=== PATIENT | female | born 1980 | race Caucasian/White ===

== ENCOUNTER → 2017-09-02 | Outpatient (CLI) | payer OTHER | END | disposition home or self-care (01) | LOC: ECHO 09:20 | DX: I27.20 Pulmonary hypertension, unspecified (principal); I07.1 Rheumatic tricuspid insufficiency | CPT/HCPCS: 93306 ==

== ENCOUNTER → 2021-01-14 | Outpatient (CLI) | payer MEDICAID ==
[~2021-01-14] MED LIST: SERT25TA PO
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
== END ==
LOC: KCIC MRI 13:01
PROVIDERS: ATTEND Family Medicine
DX: M47.817 Spondylosis without myelopathy or radiculopathy, lumbosacral region (principal); M48.07 Spinal stenosis, lumbosacral region; M51.27 Other intervertebral disc displacement, lumbosacral region
CPT/HCPCS: 72148

== ENCOUNTER → 2021-03-13 | Outpatient (CLI) | payer MEDICAID ==
--- NOTE | 2021-03-13 14:25 | KCIC ---
EXAMINATION: Magnetic resonance angiography (MRA) of the brain without contrast 03/13/2021 9:35 AM HISTORY: New pressure in the back of the head without relief. TECHNIQUE: Noncontrast 5 magnetic resonance angiography of the [place] was obtained. Maximum intensity projection images are provided. Family history of aneurysm. COMPARISON: 05/04/2017 FINDINGS: Intracranial segments of internal carotid arteries are normal in course and caliber. Ophthalmic segme nts are widely patent. A1 segments of anterior cerebral arteries are patent. There is a broad-based 2 mm x 2 mm aneurysm arising from the right P2 segment of anterior cerebral artery (series 7, image 12 3). Middle cerebral arteries are normal in course and caliber with patent sylvian branches. Vertebral arteries are codominant. Posterior inferior cerebellar arteries are widely patent. Anterior inferior cerebellar arteries are patent. Superior cerebellar arteries are patent. Posterior cerebral arteries are normal in course and caliber. There is no vascular malformation or high-grade stenosis/ large vessel occlusion involving [place]. Diffusion weighted images reveal no hyperintensities to suggest acute cerebral infarction. IMPRESSION: 1. There is a 2 x 2 mm laterally projecting aneurysm arising from the right A2 segment of anterior ce rebral artery immediately distal to the anterior communicating artery. 2. No vascular malformation or high-grade stenosis/large vessel occlusion. Electronically signed by: Kanchan Mondragon MD (03/13/2021 2:22 PM) [id number]
== END ==
LOC: KCIC MRI 09:03
PROVIDERS: ATTEND Physician Assistant
DX: I67.1 Cerebral aneurysm, nonruptured (principal); R51.9 Headache, unspecified; Z82.49 Family history of ischemic heart disease and other diseases of the circulatory system
CPT/HCPCS: 70544

== ENCOUNTER 2021-08-08 15:13 | Emergency (ER) | payer MEDICAID ==
[~2021-08-08] VITALS: Ht 182.9 cm; Wt 99.1 kg
[2021-08-08 15:38] VITALS: BP 140/96
[2021-08-08] MEDS ORDERED: KETOROLAC 30 MG/ML VIAL. IVP ONE (16:00)
[2021-08-08] MEDS ORDERED: PROCHLORPERAZINE 10 MG/2 ML VIAL. IV ONE (16:00)
[2021-08-08] MEDS ORDERED: IV NORMAL SALINE 1000ML BAG 1,000 ML IV ONE (16:00)
[2021-08-08] MEDS ORDERED: diphenhydrAMINE 50 MG/ML VIAL IVP ONE (16:00)
--- NOTE | 2021-08-08 16:11 | PHYS DOC ---
Past Medical History Past Surgical History: , Tubal ligation Additional Past Surgical Histo: umbilical hernia repair General Adult EDM: Chief Complaint: HEADACHE HPI: HPI: Patient is a 40-year-old female who presents to the emergency department for posterior head pain that started this morning. She rates her pain 9 out of 10. Pain does not radiate. She took naproxen and Tylenol for her symptoms. Patient does have a history of headaches. The last time she had a headache was in April of last year she saw her primary care provider and had a CT angio of her brain performed which did show a 2 x 2 millimeter aneurysm. Patient was referred to [facility] and she states she saw a neurologist who performed a repeat image and the aneurysm was not better. Patient states that they told her to continue to follow-up with her primary care provider. Associated with th e headache patient is reporting nausea and dizziness. She denies vomiting, photophobia, phonophobia, fevers, injuries. She reports that this headache feels different than the previous headache in which the aneurysm was found. She denies thunderclap headache. Review of Systems: Review of Systems: Constitutional: negative unless reported in HPI Eyes: negative unless reported in HPI HENT: negative unless reported in HPI Respiratory: negative unless reported in HPI Cardiovascular: negative unless reported in HPI GI: negative unless reported in HPI : negative unless reported in HPI Musculoskeletal: negative unless reported in HPI Integument: negative unless reported in HPI Neurologic: negative unless reported in HPI Endocrine: negative unless reported in HPI Lymphatic: negative unless reported in HPI Psychiatric: negative unless reported in HPI Heart Score: C/O Chest Pain: N/A Risk Factors: Risk Factors: DM, Current or recent (<one month) smoker, HTN, HLP, family history of CAD, obesity. Risk Scores: Score 0 - 3: 2.5% MACE over next 6 weeks - Discharge Home Score 4 - 6: 20.3% MACE over next 6 weeks - Admit for Clinical Observation Score 7 - 10: 72.7% MACE over next 6 weeks - Early Invasive Strategies Current Medications: Current Medications Medications (Trade) Dose Ordered Sig/Prosper Start Time Stop Time Status Last Admin Dose Admin Diphenhydramine HCl (Benadryl) 25 mg 1X ONCE 08/08/21 16:00 08/08/21 16:01 DC 08/08/21 15:59 25 MG Ketorolac Tromethamine (Toradol 30mg Vial) 30 mg 1X ONCE 08/08/21 16:00 08/08/21 16:01 DC 08/08/21 15:57 30 MG Prochlorperazine Edisylate (Compazine) 10 mg 1X ONCE 08/08/21 16:00 08/08/21 16:01 DC 08/08/21 15:55 10 MG Sodium Chloride 1,000 ml @ 1,000 mls/hr 1X ONCE 08/08/21 16:00 08/08/21 16:59 Allergies: Allergies: Allergies Coded Allergies Type Severity Reaction Last Updated Verified Penicillins Allergy Intermediate 05/04/17 Yes morphine Allergy Intermediate 05/04/17 Yes Physical Exam: PE: Constitutional: Well developed, well nourished, no acute distress, non-toxic appearance. [] HENT: Normocephalic, atraumatic, bilateral external ears normal, oropharynx moist, no oral exudates, nose normal. [] Eyes: PERRL, 4 mm bilaterally, EOMI, conjunctiva normal, no discharge. [] Neck: Normal range of motion, no tenderness, no nucchal rigidity, supple, no stridor. [] Cardiovascular:Heart rate regular rhythm, no murmur [] Lungs & Thorax: Bilateral breath sounds clear to auscultation [] Abdomen: Bowel sounds normal, soft, no tenderness, no masses, no pulsatile masses. [] Skin: Warm, dry, no erythema, no rash. [] Back: Normal range of motion Extremities: No tenderness, no cyanosis, no clubbing, ROM intact, no edema. [] Neurologic: Alert and oriented X 3, equal claim auditor strengths, patient is moving all four extremities equally, no speech changes, normal sensation, no pronator drift, no limb ataxia Psychologic: Affect normal, judgement normal, mood normal. [] Current Patient Data: Labs: Laboratory Tests Test 08/08/21 16:03 White Blood Count 2.9 x10^3/uL Red Blood Count 3.51 x10^6/uL Hemoglobin 9.8 g/dL Hematocrit 30.6 % Mean Corpuscular Volume 87 fL Mean Corpuscular Hemoglobin 28 pg Mean Corpuscular Hemoglobin Concent 32 g/dL Red Cell Distribution Width 22.6 % Platelet Count 212 x10^3/uL Neutrophils (%) (Auto) 47 % Lymphocytes (%) (Auto) 41 % Monocytes (%) (Auto) 8 % Eosinophils (%) (Auto) 2 % Basophils (%) (Auto) 2 % Neutrophils # (Auto) 1.4 x10^3/uL Lymphocytes # (Auto) 1.2 x10^3/uL Monocytes # (Auto) 0.2 x10^3/uL Eosinophils # (Auto) 0.1 x10^3/uL Basophils # (Auto) 0.1 x10^3/uL Platelet Estimate Adequate Poikilocytosis Slight Basophilic Stippling Present Anisocytosis Mod Spherocytes Target Cells Few Tear Drop Cells Occ Ovalocytes Occ Stomatocytes Few Sodium Level 135 mmol/L Potassium Level 3.5 mmol/L Chloride Level 100 mmol/L Carbon Dioxide Level 25 mmol/L Anion Gap 10 Blood Urea Nitrogen 6 mg/dL Creatinine 0.8 mg/dL Estimated GFR (Cockcroft-Gault) 79.0 BUN/Creatinine Ratio 8 Glucose Level 86 mg/dL Calcium Level 8.0 mg/dL Total Bilirubin 0.5 mg/dL Aspartate Amino Transf (AST/SGOT) 69 U/L Alanine Aminotransferase (ALT/SGPT) 44 U/L Alkaline Phosphatase 65 U/L Total Protein 7.5 g/dL Albumin 3.9 g/dL Albumin/Globulin Ratio 1.1 Current Medications Medications (Trade) Dose Ordered Sig/Prosper Route PRN Reason Start Time Stop Time Status Last Admin Dose Admin Diphenhydramine HCl (Benadryl) 25 mg 1X ONCE IVP 08/08/21 16:00 08/08/21 16:01 DC 08/08/21 15:59 Ketorolac Tromethamine (Toradol 30mg Vial) 30 mg 1X ONCE IVP 08/08/21 16:00 08/08/21 16:01 DC 08/08/21 15:57 Sodium Chloride 1,000 ml @ 1,000 mls/hr 1X ONCE IV 08/08/21 16:00 08/08/21 16:59 DC Prochlorperazine Edisylate (Compazine) 10 mg 1X ONCE IV 08/08/21 16:00 08/08/21 16:01 DC 08/08/21 15:55 Iohexol (Omnipaque 350 Mg/ml) 75 ml 1X ONCE IV 08/08/21 17:00 08/08/21 17:07 DC 08/08/21 17:26 Info (CONTRAST GIVEN -- Rx MONITORING) 1 each PRN DAILY PRN MC SEE COMMENTS 08/08/21 17:15 08/10/21 17:14 Vital Signs: Vital Signs Date Time Temp Pulse Resp B/P (MAP) Pulse Ox O2 Delivery O2 Flow Rate FiO2 08/08/21 15:38 98.5 69 25 140/96 (111) 100 Room Air 98.5 EKG: EKG: [] Radiology/Procedures: Radiology/Procedures: []PROCEDURE: CT HEAD WO CONTRAST Exam: CT head INDICATION: Headache TECHNIQUE: Sequential axial images through the head were obtained without the administration of IV contrast. Exposure: One or more of the following in the visualized dose reduction tech niques were utilized for this examination: 1. Automated exposure control 2. Adjustment of the MA and/or KV according to patient size 3. Use of iterative of reconstructive technique Comparisons: None FINDINGS: No focal parenchymal lesion or hemorrhage is identified. There is no midline shift or sulcal effacement. No acute vascular territory infarction is identified. Minor-white distinction is preserved. The ventricular system is within normal limits without compression hydrocephalus. The basal cisterns are well maintained. The visualized portions of the paranasal sinuses and mastoid air cells are well- pneumatized. No acute fractures. IMPRESSION: No acute intracranial abnormality. Electronically signed by: Abhay Medellin MD (08/08/2021 4:22 PM) [facility] DICTATED and SIGNED BY: ABHAY MEDELLIN MD DATE: 08/08/21 [id number] 0 REASON: headache, hx aneurysm PROCEDURE: CT ANGIOGRAPHY HEAD CTA HEAD History:Reason: headache, hx aneurysm / Spl. Instructions: OMNI 350 INJ. 75 MLS / History: Technique: After bolus of intravenous contrast, volumetric CT data acquisition was acquired of the head. Multiplanar reconstruction images to include MIP and 3-D reconstruction images are submitted. Exposure: One or more of the following individualized dose reduction techniques were utilized for this examination: 1. Automated exposure control 2. Adjustment of the mA and/or kV according to patient size 3. Use of iterative reconstruction technique. Comparison: MR angiogram March 13, [address] August 08, 2019 Any determination of stenosis is based on NASCET criteria. Noncontrast CT head: No intracranial hemorrhage. No mass effect. No hydrocephalus. Extra-axial spaces are unremarkable. Imaged orbits are unremarkable. Imaged paranasal sinuses and mastoid air cells are clear. Head CTA: ICA: No stenosis, occlusion or aneurysm. MCA: No stenosis, occlusion or aneurysm. JOY: Unchanged tiny 2 mm right anterior cerebral artery A2 segment aneurysm (series 10 image 28). No stenosis or occlusion. REHABILITATION SERVICES COORDINATOR: No stenosis, occlusion or aneurysm. Basilar artery: No stenosis, occlusion or aneurysm. Distal vertebral arteries: No stenosis, occlusion or aneurysm. Impression: 1. No intracranial arterial stenosis or occlusion. 2. 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 Electronically signed by: Karl Davis DO (08/08/2021 5:59 PM) [facility] DICTATED and SIGNED BY: KARL DAVIS DO DATE: 08/08/21 [id number] 0 Course & Med Decision Making: Course & Med Decision Making Pertinent Labs and Imaging studies reviewed. (See chart for details) [] Patient presents to the emergency department for posterior head pain that started this morning. Patient does have a history of headaches and had brain imaging in April that showed a 2 x 2 millimeter aneurysm. Patient states she followed up with a neurologist at [facility] and that additional brain imaging was performed that did not show any aneurysm. Patient denies thunderclap headache, she is reporting nausea and dizziness with her headache, no neck stiffness. She had a normal neuro exam. Work-up in the ER consisted of CT imaging of patient's head which showed no acute findings.. Patient treated with migraine cocktail. Following treatment in the emergency department, patient reports complete resolution in her headache. Due to patient's history of an aneurysm, CT angio of her head was performed which did show an unchanged 2 mm aneurysm that was previously seen without any additional findings patient was noted to have mild leukopenia. Due to this and her symptoms of headache, she was tested for COVID-19 you will be notified of those results they become available.. Patient advised to take [id number] follow-up with [facility] if she continues to have the pain. I discussed with patient all findings and diagnostic testing as well as the need to follow-up with PCP for further evaluation and treatment or return to the ER if any new or worsening symptoms. Strict return precautions were also discussed at length. Patient voiced understanding and agreement with the plan. Patient is hemodynamically stable at the time of disposition. Dragon Disclaimer: Dragon Disclaimer: This electronic medical record was generated, in whole or in part, using a voice recognition dictation system. Departure Departure Impression: Primary Impression: Headache Qualified Codes: R51.9 - Headache, unspecified Disposition: HOME / SELF CARE / HOMELESS Condition: GOOD Referrals: CHUY BYRD MD (PCP) Patient Instructions: General Headache Without Cause Additional Instructions: You were seen in the emergency department today for a headache. You were treated with a migraine cocktail and reported improvement in symptoms. CT imaging of your head did show an unchanged aneurysm that is approximately 2 mm. Prior to discharge, you were tested for COVID-19. You will be notified of your results when they become available in approximately 1 to 2 days. Please self isolate until you receive these results. You can take Tylenol for any pain at home. Increase your fluids and rest. You will need to follow-up with [facility] regarding this finding. Please contact them tomorrow to set up a follow-up appointment. Return to the emergency department if you develop worsening of your head pain, intractable nausea or vomiting, high fevers refractory to treatment, confusion, difficulty walking, poor coordination, speech problems. TRAVON HIRSCH APRN Aug 08, 2021 16:11
--- NOTE | 2021-08-08 16:24 | RAD ---
Exam: CT head INDICATION: Headache TECHNIQUE: Sequential axial images through the head were obtained without the administration of IV co ntrast. Exposure: One or more of the following in the visualized dose reduction techniques were utilized for this examination: 1. Automated exposure control 2. Adjustment of the MA and/or KV according to patient size 3. Use of iterative of reconstructive technique Comparisons: None FINDINGS: No focal parenchymal lesion or hemorrhage is identified. There is no midline shift or sulcal effaceme nt. No acute vascular territory infarction is identified. Minor-white distinction is preserved. The ventricular system is within normal limits without compression hydrocephalus. The basal cisterns are well maintained. The visualized portions of the paranasal sinuses and mastoid air cells are well-pneumatized. No acute fractures. IMPRESSION: No acute intracranial abnormality. Electronically signed by: Abhay Cueto MD (08/08/2021 4:22 PM) JESSICA
[2021-08-08 16:47] LABS: BASO # 0.1 x10^3/uL (0.0-0.2); BASO % 2 % (0-3); EOS # 0.1 x10^3/uL (0.0-0.7); EOS % 2 % (0-3); HEMATOCRIT 30.6 % (36.0-47.0); HEMOGLOBIN 9.8 g/dL (12.0-15.5); LYMPH # 1.2 x10^3/uL (1.0-4.8); LYMPH % 41 % (24-48); MEAN CORPUSCULAR HEMOGLOBIN 28 pg (25-35); MEAN CORPUSCULAR HGB CONC 32 g/dL (31-37); MEAN CORPUSCULAR VOLUME 87 fL (79-100); MONO # 0.2 x10^3/uL (0.0-1.1); MONO % 8 % (0-9); NEUT # 1.4 x10^3/uL (1.8-7.7); NEUT % 47 % (31-73); PLATELET COUNT 212 x10^3/uL (140-400); RED BLOOD COUNT 3.51 x10^6/uL (3.50-5.40); RED CELL DISTRIBUTION WIDTH 22.6 % (11.5-14.5); WHITE BLOOD COUNT 2.9 x10^3/uL (4.0-11.0)
[2021-08-08 16:51] LABS: CREATININE 0.8 mg/dL (0.6-1.0); POTASSIUM 3.5 mmol/L (3.5-5.1)
[2021-08-08 16:57] LABS: ALBUMIN 3.9 g/dL (3.4-5.0); ALBUMIN/GLOBULIN RATIO 1.1 (1.0-1.7); TOTAL BILIRUBIN 0.5 mg/dL (0.2-1.0); TOTAL PROTEIN 7.5 g/dL (6.4-8.2)
[2021-08-08] MEDS ORDERED: IOHEXOL 350 MG/ML 100 ML VIAL. IV ONE (17:00)
[2021-08-08] MEDS ORDERED: CONTRAST GIVEN. MC PRN (17:15)
[2021-08-08 17:49] LABS: PLT ESTIMATE ADEQUATE (ADEQUATE)
[2021-08-08 17:50] LABS: ANISOCYTOSIS MOD
[2021-08-08 17:51] LABS: OVALOCYTES OCC; POIKILOCYTOSIS SLIGHT
[2021-08-08 17:52] LABS: STOMATOCYTES FEW; TEAR DROP CELLS OCC
[2021-08-08 17:53] LABS: TARGET CELLS FEW
--- NOTE | 2021-08-08 18:02 | RAD ---
CTA HEAD History:Reason: headache, hx aneurysm / Spl. Instructions: OMNI 350 INJ. 75 MLS / History: Technique: After bolus of intravenous contrast, volumetric CT data acquisition was acquired of the ad. Multiplanar reconstruction images to include MIP and 3-D reconstruction images are submitted. Exposure: One or more of the following individualized dose reduction techniques were utilized for thi s examination: 1. Automated exposure control 2. Adjustment of the mA and/or kV according to patient size 3. Use of iterative reconstruction technique. Comparison: MR angiogram March 13, [address] August 08, 2019 Any determination of stenosis is based on NASCET criteria. Noncontrast CT head: No intracranial hemorrhage. No mass effect. No hydrocephalus. Extra-axial spaces are unremarkable. Imaged orbits are unremarkable. Imaged paranasal sinuses and mastoid air cells are clear. Head CTA: ICA: No stenosis, occlusion or aneurysm. MCA: No stenosis, occlusion or aneurysm. JOY: Unchanged tiny 2 mm right anterior cerebral artery A2 segment aneurysm (series 10 image 28). No stenosis or occlusion. TRIAGE LICENSED PRACTICAL NURSE: No stenosis, occlusion or aneurysm. Basilar artery: No stenosis, occlusion or aneurysm. Distal vertebral arteries: No stenosis, occlusion or aneurysm. Impression: 1. No intracranial arterial stenosis or occlusion. 2. 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 Electronically signed by: Karl Davis DO (08/08/2021 5:59 PM) [facility]
== END 2021-08-08 18:40 | disposition home or self-care (01) ==
LOC: ER 15:13
DX: R51.9 Headache, unspecified (principal); Z88.0 Allergy status to penicillin; Z88.5 Allergy status to narcotic agent
CPT/HCPCS: 36415; 70450; 70496; 80053; 85025; 96374; 96375; 99285; J0780; J1200; J1885; Q9967

== ENCOUNTER → 2021-11-07 | Outpatient (CLI) | payer MEDICAID ==
--- NOTE | 2021-11-07 18:16 | CARD ---
MR#: [id number] Date of Study: 11/07/2021 Ordering Physician: PAOLA RUDOLPH, Referring Physician: PAOLA RUDOLPH, Daron: Pamela Lara ADELFO APPROVED REPORT INDICATION Chest Pain Reason : Patient complained of pain PROCEDURE The patient underwent an Exercise Stress Test using the Omari Protocol. Blood pressure, heart rate, a nd EKG were monitored. An Echocardiogram was performed by bike technician in four stages in quad fashion. At peak stress four se lected images were obtained and placed side by side with resting images for comparison. STRESS ECHO FINDINGS The resting Echocardiogram showed normal left ventricular systolic contractility with an estimated Ej ection Fraction of about 60 %. The Resting Echocardiogram showed normal augmentation of myocardial wall segments using a 16 segment model. The Stress Echocardiogram showed normal augmentation of myocardial wall segments using a 16 segment m john. The Stress Echocardiogram left ventricular systolic contractility has an estimated Ejection Fraction of about 70%. Test Type: Exercise Stress Nurse/Tech: Chuck Roach RN Test Indications: chest pain Cardiac History and Allergies: No known cardiac Medications: see EMR Medical History: see EMR Resting ECG: SR Resting Heart Rate: 80 bpm Resting Blood Pressure: 134/55mmHg Nurse/Tech Notes lungs CTA, S1S2 Consent: The procedure was explained to the patient in lay terms. Informed consent was witnessed. Raul eout was entered into [employer]. History and Stress Test performed by Chuck Roach RN Stress Symptoms No chest pain or symptoms. POST EXERCISE Reason for Termination: Reached target heart rate Max HR: 168 bpm 94% of Maximum Predicted HR: 179 bpm Max Blood Pressure: 170/68mmHg Blood Pressure response to exercise: normal response Heart Rate response to exercise: normal response Chest Pain: No. Arrhythmia: No. ST Change: No. INTERPRETATION Stress EKG Conclusion: The resting EKG showed a sinus rhythm with mild nonspecific ST segment changes . The stress EKG showed no significant change from baseline. No EKG evidence of stress-induced ischemia. <Conclusion> Good exercise tolerance with the patient walking for 7 minutes and 34 seconds on a Omari protocol. No EKG evidence of stress-induced ischemia. Normal LV systolic function at rest. Normal LV response to exertion with no regional wall motion abnormalities. Low risk treadmill stress echo. Signed by : Paola Rudolph MD Electronically Approved : 11/07/2021 18:15:27
== END ==
LOC: ECHO 14:09
PROVIDERS: ATTEND Internal Medicine Cardiovascular Disease
DX: R07.9 Chest pain, unspecified (principal)
CPT/HCPCS: 93017; 93350